=== PATIENT | female | born 1970 | race Caucasian/White ===

== ENCOUNTER 2023-02-09 14:11 | Emergency (ER) | payer OTHER ==
[~2023-02-09] VITALS: Ht 160 cm; Wt 65.8 kg
[~2023-02-09 14:11] MED LIST: FLEXERIL5 M1 PO; GABAPENTIN400 M2 PO; OXYCODONE15 MG PO; PROAIR DIG108 MCG/AC; TIZANIDINE4 MG PO
[2023-02-09 15:44] VITALS: BP 129/77
== END 2023-02-09 15:46 | disposition home or self-care (01) ==
LOC: ED 14:11
DX: M79.661 Pain in right lower leg (principal); F11.20 Opioid dependence, uncomplicated